=== PATIENT | male | born 1955 | race Caucasian/White ===

== ENCOUNTER → 2019-08-25 14:00 | Outpatient (CLI) | payer MEDICARE, OTHER, SELFPAY ==
--- NOTE | ~2019-08-25 | CT_ITS ---
EXAMINATION: CT chest w con DATE: 08/25/2019 14:41 INDICATION: Ascending aortic aneurysm TECHNIQUE: Transaxial computed tomographic images of the chest were obtained after the administration of 75 cc of Omnipaque 350 intravenous contrast. The dose-length product (DLP) was 498.08 mGy-cm. Ite rative reconstruction was used. COMPARISON: 08/14/2018 FINDINGS: There is a 4.8 cm fusiform aneurysm of the ascending aorta which is not significantly nails ed since the prior examination. There is no dissection. The lungs are free of acute opacities. No pat hologically enlarged thoracic lymph nodes are identified. The heart size is normal. There is no pleur al effusion or pneumothorax. A small sliding hiatal hernia is noted. IMPRESSION: 1. Stable fusiform aneurysm of the ascending aorta measuring 4.8 cm without dissection. Reviewed, dictated and finalized at location A. IMPRESSION: 1. Stable fusiform aneurysm of the ascending aorta measuring 4.8 cm without dis section.
[2019-08-25 14:25] LABS: Estimated Glomerular Filt Rate > 60
== END ==
DX: I71.2 Thoracic aortic aneurysm, without rupture (principal)
CPT/HCPCS: 36415; 71260; Q9967

== ENCOUNTER → 2020-08-30 09:28 | Outpatient (CLI) | payer MEDICARE, OTHER, SELFPAY ==
--- NOTE | ~2020-08-30 | CT_ITS ---
EXAMINATION: CT diagnostic chest w con EXAM DATE: 08/30/2020 10:02 INDICATION: Ascending aortic aneurysm, pulmonary nodule. TECHNIQUE: Spiral CT of the chest following intravenous injection of 75 mL Omnipaque 350. Axial, cor onal and sagittal images were reviewed. Coronal maximum intensity pixel images of chest reviewed. T collins dose-length product (DLP) for this examination was 457.30 mGy-cm. The exposure was tailored accor ding to patient size (auto mA exposure control), and iterative reconstruction (ASIR) was used as ashlyn tional dose reduction technique. Comparison is made to prior examination from 08/25/2019. FINDINGS: There is mild hyperinflation and emphysema. The ascending aorta measures 4.9 cm, unchanged . There is no dissection. No central pulmonary emboli. The lungs are clear. There is mild emphysema a nd hyperinflation. There is small sliding gastroesophageal hiatal hernia. There are no pleural or pe ricardial effusions. Tracheobronchial tree is patent. There is no mediastinal, hilar or axillary lymphadenopathy. There is no pneumothorax. Heart normal in size. Upper abdomen is unremarkable. Patient has diffuse idiopathic skeletal hyperostosis (DISH). There are no osteoblastic or osteolyt ic lesions identified. IMPRESSION: 1. Stable ascending aortic 4.9 cm aneurysm. 2. Mild emphysema and hyperinflation. Reviewed, dictated and finalized at location A.
[2020-08-30 09:49] LABS: Estimated Glomerular Filt Rate > 60
== END ==
PROVIDERS: PCP Internal Medicine
DX: I71.2 Thoracic aortic aneurysm, without rupture (principal); J43.9 Emphysema, unspecified
CPT/HCPCS: 71260; Q9967

== ENCOUNTER 2020-09-14 19:34 | Emergency (ER) | payer MEDICARE, OTHER, SELFPAY ==
--- NOTE | ~2020-09-14 | CT_ITS ---
EXAMINATION: CT abdomen pelvis w con INDICATION: Left lower quadrant pain TECHNIQUE: Computed tomographic images of the abdomen and pelvis were obtained after the administrati on of 100 cc of Omnipaque 350 intravenous contrast. The dose-length product (DLP) was 1052.54 mGy-cm. Automated exposure control and iterative reconstruction technique were employed. COMPARISON: 12/23/2012 FINDINGS: Minimal dependent atelectasis is present in the lung bases. The heart size is normal. The l iver is diffusely low in attenuation when compared with the spleen, consistent with hepatic steatosis . The spleen, pancreas, gallbladder, and adrenal glands are normal. There is a 2 cm cyst of the right kidney. A 2 mm nonobstructing stone is present in the left kidney. No pathologically enlarged abdomi nal or pelvic lymph nodes are identified. There is no free intraperitoneal gas or evidence of bowel o bstruction. There is a circumscribed area of fat attenuation adjacent to the distal descending colon with adjacent inflammatory change. There is moderate lumbar spondylosis. Colonic diverticulosis is pr esent without evidence of diverticulitis. IMPRESSION: 1. Findings adjacent to the distal descending colon suggestive of epiploic appendagitis. Reviewed, dictated and finalized at location A. IMPRESSION: 1. Findings adjacent to the distal descending colon suggestive of epiploic appe ndagitis.
[2020-09-14 19:40] VITALS: BP 169/88; PULSE 72; RESP 18; TEMP 36.1; O2SAT 98
--- NOTE | 2020-09-14 19:51 | ED.ABDPAIN ---
HPI - Abdominal Pain General Chief Complaint: Abdominal Pain Stated Complaint: ABD pain Time Seen by Provider: 09/14/20 19:44 Source: patient Mode of arrival: ambulatory Limitations: no limitations History of Present Illness HPI narrative: Patient is a 65-year-old male complaining of left lower quadrant pain that started approximately 3 days ago. Patient states his pain is a 5 out of 10, dull, nonradiating. Patient denies any chest pain, shortness of breath, nausea, vomiting, diarrhea, urinary symptoms, fever or chills. Related Data Allergies Allergy/AdvReac Type Severity Reaction Status Date / Time erythromycin base Allergy Unknown Verified 03/17/13 08:24 Sulfa (Sulfonamide Allergy Unknown Verified 03/17/13 08:24 Antibiotics) Review of Systems Review of Systems: All systems reviewed & are unremarkable except as noted in HPI and below Constitutional: Constitutional: Denies body ache(s), Denies chills, Denies excessive sweating, Denies fatigue, Denies fever(s), Denies headache(s), Denies lethargy, Denies malaise, Denies weakness and Denies weight loss Eyes: Eyes: Denies blurry vision, Denies change in vision and Denies loss of vision ENT: Denies dizziness, Denies ear discharge, Denies headache(s), Denies lip swelling, Denies epistaxis, Denies nasal congestion, Denies neck pain, Denies throat swelling and Denies tongue swelling Cardiovascular: Cardiovascular: Denies chest pain, Denies chest pain at rest, Denies chest pain with activity, Denies diaphoresis, Denies rapid heart rate, Denies edema, Denies irregular heart rhythm, Denies lightheadedness, Denies palpitations, Denies dyspnea and Denies dyspnea on exertion Respiratory: Respiratory: Denies chest congestion, Denies cough, Denies hemoptysis, Denies dyspnea and Denies dyspnea on exertion Gastrointestinal: Gastrointestinal: Denies melena, Denies hematochezia, Denies diarrhea, Denies nausea, Denies vomiting and Denies hematemesis Musculoskeletal: Musculoskeletal: Denies abnormal gait, Denies deformity, Denies joint swelling, Denies limited range of motion, Denies neck pain and Denies numbness Neurologic: Denies Abnormal speech present, Denies abnormal gait, Denies confusion, Denies dizziness, Denies headache(s), Denies focal weakness, Denies loss of vision, Denies numbness, Denies Other visual disturbances, Denies Sensory deficit (Neuro) and Denies weakness Psychiatric: Psychiatric: Denies confusion, Denies depression, Denies auditory hallucinations, Denies homicidal ideation and Denies suicidal ideation Endocrine: Endocrine: Denies cold intolerance, Denies excessive sweating, Denies fatigue, Denies heat intolerance and Denies palpitations Hematologic/Lymphatic: Hematologic/Lymphatic: Denies easy bleeding and Denies easy bruising Allergic/Immunologic: Allergic/Immunologic: Denies lip swelling, Denies throat swelling and Denies tongue swelling PMFSH Social History Social History Smoking status: Never smoker Alcohol intake: current Gender identity (if verbalized by the patient): Male Comments Past medical history: Hypertension, aortic aneurysm, hyperlipidemia Family history: Noncontributory Social history non-smoker no EtOH or drug use Exam Const: General: cooperative, healthy appearing, comfortable, no acute distress, well developed, alert and awake; No confusion Orientation/consciousness: oriented to person, oriented to place, oriented to time, patient oriented x3 and No confusion Limitations: no limitations HENMT: Head: normal to inspection, normocephalic and atraumatic Ears: hearing grossly normal bilaterally, TM normal on the right and TM normal on the left General nose exam: Normal external nose present, Normal nares present and No nasal discharge present Face and sinus: normal facial exam Mouth: Yes Normal oral and palatal mucosa present, Yes lip normal, Yes tongue normal and Yes oropharynx normal Throat: posterior oropharynx normal, tonsils normal and
[2020-09-14 20:06] LABS: Basophils Percent Auto 0.4 % (0.2-1.2); Eosinophils Absolute Auto 0.1 K/mm3 (0-0.3); Eosinophils Percent Auto 1.5 % (0-4.4); Hematocrit 43.8 % (42.0-52.0); Hemoglobin 14.7 g/dL (14.0-18.0); Immature Granulocyte Absolute 0.01 K/mm3 (0.00-0.031); Immature Granulocyte Percent A 0.1 % (0-0.5); Lymphocytes Absolute Auto 1.15 K/mm3 (0.9-3.2); Lymphocytes Percent Auto 16.7 % (18.3-44.2); Mean Corpuscular HGB Conc 33.6 g/dl (32-36); Mean Corpuscular Hemoglobin 29.9 pg (26-34); Mean Corpuscular Volume 89.2 fl (80-100); Mean Platelet Volume 10.3 fl (7.4-10.4); Monocytes Absolute Auto 0.9 K/mm3 (0.1-0.6); Monocytes Percent Auto 13.5 % (2.6-8.5); Neutrophils Absolute Auto 4.7 K/mm3 (1.3-6.7); Neutrophils Percent Auto 67.8 % (45.5-73.1); Platelet Count Result 221 k/mm3 (150-375); Red Blood Count 4.91 M/mm3 (4.6-6.20); Red Cell Distribution Width 12.1 % (11.5-14.5); White Blood Count 6.9 K/mm3 (4.5-10.0)
[2020-09-14 20:24] LABS: Alanine Aminotransferase 41 U/L (4-50); Albumin Level 4.2 g/dL (3.5-5.1); Alkaline Phosphatase 75 U/L (38-126); Anion Gap 6 mmol/L (8-16); Aspartate Amino Transferase 36 U/L (17-59); Bilirubin,Total 0.5 mg/dL (0.2-1.3); Blood Urea Nitrogen 18 mg/dL (9-20); Calcium 8.7 mg/dL (8.4-10.2); Carbon Dioxide 29 mmol/L (22-30); Chloride 105 mmol/L (98-107); Estimated CRCL calculation 80 ml/min; Estimated Glomerular Filt Rate > 60; Glucose 88 mg/dL (75-110); Lipase 121 U/L (23-300); Potassium 3.7 mmol/L (3.4-5.0); Sodium 140 mmol/L (137-145)
[2020-09-14 20:45] LABS: Add Urine Microscopic? YES; Appearance Urine Clear (Clear); Bilirubin Urine Negative (Negative); Blood Urine 1+ (Negative); Color Urine Yellow (Yellow); Glucose Urine UA Negative (Negative); Ketones Urine Negative (Negative); Leukocyte Esterase Ur Negative LEU/UL (Negative); Mucus Urine Few /lpf; Nitrate Urine Negative (Negative); Protein Urine 1+ mg/dL (Negative); Specific Grav Ur 1.029 (1.001-1.035); WBC Urine 0-3 /hpf
[2020-09-14] MEDS: SODIUM CHLORIDE 0.9% IV 1,000 ML 999 ML IV CONT (20:54)
[2020-09-14 22:17] VITALS: BP 167/90; PULSE 84; RESP 16; TEMP 36.2; O2SAT 99
== END 2020-09-14 22:18 | disposition home or self-care (01) ==
PROVIDERS: Emergency Provider Emergency Medicine; PCP Internal Medicine
DX: K63.89 Other specified diseases of intestine (principal)
CPT/HCPCS: 36415; 74177; 80053; 81001; 83690; 85025; 96360; 99284; J7030; Q9967

== ENCOUNTER → 2021-09-13 10:18 | Outpatient (CLI) | payer MEDICARE, SELFPAY ==
--- NOTE | ~2021-09-13 | CT_ITS ---
EXAMINATION: CT diagnostic chest w con EXAM DATE: 09/13/2021 10:56 INDICATION: Aortic aneurysm. TECHNIQUE: Spiral CT of the chest following intravenous injection of 75 mL Omnipaque 350. Axial, cor onal and sagittal images of the chest were reviewed. Coronal maximum intensity pixel images of chest reviewed. The dose-length product (DLP) for this examination was 503.81 mGy-cm. The exposure was t ailored according to patient size (auto mA exposure control), and iterative reconstruction (ASIR) was used as additional dose reduction technique. Comparison is made to prior examination from 08/30/2020. FINDINGS: The ascending aorta measures 4.8 x 4.8 cm, unchanged in size compared to prior study. Ther e is no dissection. No central pulmonary emboli. Mild emphysema and hyperinflation. There are no ple ural or pericardial effusions. Tracheobronchial tree is patent. There is no mediastinal, hilar or axillary lymphadenopathy. There is no pneumothorax. Heart normal in size. There is mild simental ry arterial calcification, arterial sclerosis. Hepatic steatosis. There is thoracic spondylosis wit hout osteoblastic or osteolytic lesions identified. IMPRESSION: 1. Ascending aortic 4.8 cm aneurysm, stable. 2. Mild emphysema and hyperinflation. Reviewed, dictated and finalized at location A.
[2021-09-13 10:44] LABS: Estimated Glomerular Filt Rate > 60
== END ==
PROVIDERS: PCP Internal Medicine; Visit Provider Internal Medicine
DX: I71.2 Thoracic aortic aneurysm, without rupture (principal); J43.9 Emphysema, unspecified; M47.814 Spondylosis without myelopathy or radiculopathy, thoracic region
CPT/HCPCS: 71260; Q9967

== ENCOUNTER → 2022-09-18 08:36 | Outpatient (CLI) | payer MEDICARE, SELFPAY ==
--- NOTE | ~2022-09-18 | CT_ITS ---
EXAMINATION:CT diagnostic chest w con DATE: 09/18/2022 09:08 INDICATION: Aneurysm of ascending aorta without rupture. TECHNIQUE: Computed tomography (CT) of the chest was performed with 75 mL Omnipaque 350 intravenous c ontrast. Automated exposure control and iterative reconstruction technique were employed. The dose-le ngth product (DLP) was 507.19 mGy-cm. COMPARISON: Chest CT 09/13/2021 FINDINGS: The lungs demonstrate minimal atelectasis. No pleural effusion. The heart size is normal. N o pericardial effusion. The aorta measures 3.3 cm at the sinuses of Valsalva, 3.4 cm at the sinotubul ar junction, 4.9 cm at the mid ascending aorta, 3.4 cm at the aortic isthmus, and 3.0 cm in the mid d escending aorta. There are bridging endplate osteophytes at multiple levels in the spine, consistent with diffuse idiopathic skeletal hyperostosis (DISH). IMPRESSION: 1. Ectasia of ascending aorta measuring 4.9 cm, not significantly changed from 4.8 cm on 09/13/2021. Reviewed, dictated and finalized at location A.
[2022-09-18 08:56] LABS: Estimated Glomerular Filt Rate > 60
== END ==
PROVIDERS: PCP Internal Medicine; Visit Provider Internal Medicine
DX: I71.21 Aneurysm of the ascending aorta, without rupture (principal)
CPT/HCPCS: 71260; Q9967

== ENCOUNTER 2022-10-16 00:50 | Day surgery (SDC) | payer MEDICARE, SELFPAY ==
[2022-10-09 10:04] VITALS: BMI 32.3
--- NOTE | 2022-10-15 19:20 | PM.HPGS ---
History of Present Illness History of Present Illness Consent: Risks, benefits, and alternatives have been discussed and questions answered. Patient agrees to proceed with procedure. Chief complaint: hx colon polyps Narrative: Fede Castillo is a 67 year old male referred for coloncancer screening. Review of Systems Review of Systems: All systems reviewed & are unremarkable except as noted in HPI and below PMFSH Social History Social History Smoking status: Never smoker Alcohol intake: current Alcohol use details: rarely Substance use: never Substance use type: does not use Living arrangements: with family Gender identity (if verbalized by the patient): Male Spiritual care concerns: No Meds Home Medications and Allergies Home Medications Medication Instructions Recorded Confirmed Type hydrochlorothiazide 12.5 mg tablet 12.5 mg PO DAILY 10/09/22 10/09/22 History levothyroxine 25 mcg tablet 25 mcg PO DAILY 10/09/22 10/09/22 History losartan 50 mg tablet 50 mg PO DAILY 10/09/22 10/09/22 History metoprolol tartrate 25 mg tablet 25 mg PO DAILY 10/09/22 10/09/22 History rosuvastatin 20 mg tablet 20 mg PO DAILY 10/09/22 10/09/22 History Allergies Allergy/AdvReac Type Severity Reaction Status Date / Time erythromycin base Allergy Unknown Other Verified 10/09/22 10:08 Sulfa (Sulfonamide Allergy Unknown Other Verified 10/09/22 10:08 Antibiotics) Exam Const: General: alert Orientation/consciousness: patient oriented x3 Resp: Auscultation: clear to auscultation bilaterally Cardio: Rhythm: regular rhythm GI: GI Palp: Yes Soft to palpation and No Tenderness to palpation present (GI) Neuro: General: patient oriented x3 Assessment and Plan Assessment and plan (1) Colon cancer screening: Code(s): Z12.11 - Encounter for screening for malignant neoplasm of colon Status: Acute Assessment and Plan: Colonoscopy with possible biopsy or polypectomy or cautery or injection of substances.
[2022-10-16 07:35] VITALS: BP 127/98; PULSE 86; RESP 20; TEMP 35.9; O2SAT 97
[2022-10-16] MEDS: LACTATED RINGERS 1,000 ML 150 ML IV CONT (07:49)
--- NOTE | 2022-10-16 08:16 | P.PNAN_ITS ---
Anes - Initial Pre Proc Eval Procedure: Operation Date: 10/16/22 08:30 Proposed Procedures p Colonoscopy - Felice Ramachandran MD Date/Time: 10/16/22 08:16 Surgeon: Felice Ramachandran MD Pre Op Diagnosis: hx colon polyps Patient Data Age: 67 Gender: M Height: 1.8 m Weight: 103.8 kg Last Vital Signs Temp 96.7 F L 10/16/22 07:35 Pulse 86 10/16/22 07:35 Resp 20 10/16/22 07:35 BP 127/98 H 10/16/22 07:35 Pulse Ox 97 10/16/22 07:35 O2 Del Method Room Air 10/16/22 07:35 Allergies Allergy/AdvReac Type Severity Reaction Status Date / Time erythromycin base Allergy Unknown Other Verified 10/09/22 10:08 Sulfa (Sulfonamide Allergy Unknown Other Verified 10/09/22 10:08 Antibiotics) Home Medications Medication Instructions Recorded Confirmed Type hydrochlorothiazide 12.5 mg tablet 12.5 mg PO DAILY 10/09/22 10/09/22 History levothyroxine 25 mcg tablet 25 mcg PO DAILY 10/09/22 10/09/22 History losartan 50 mg tablet 50 mg PO DAILY 10/09/22 10/09/22 History metoprolol tartrate 25 mg tablet 25 mg PO DAILY 10/09/22 10/09/22 History rosuvastatin 20 mg tablet 20 mg PO DAILY 10/09/22 10/09/22 History Patient hx anesthesia problems: none Family hx anesthesia problems: none Results Review: All pre-operative results and documents have been reviewed as part of the pre- operative evaluation. [facility] Social History Social History Smoking status: Never smoker Alcohol intake: current Alcohol use details: rarely Substance use: never Substance use type: does not use Living arrangements: with family Gender identity (if verbalized by the patient): Male Spiritual care concerns: No Anes - Eval Final PreProcedure Day of Procedure 10/16/22 08:16 Patient weight: obese Heart: regular rate and rhythm Lungs: clear to auscultation Airway: Mallampati scale class II Neurological: alert and oriented Last oral intake: >/= 8 hours ASA classification: III Emergent: no Anesthetic plan: proceed Anesthesia type and monitoring: general GIVS and standard monitoring Results Review: All pre-operative results and documents have been reviewed as part of the pre- operative evaluation. Informed Consent: The patient's anesthetic plan and its attendant risks and benefits were discussed with the patient/family/POA. Questions were solicited and answers provided to the satisfaction of the patient/family/POA.
[2022-10-16 08:39] VITALS: BP 120/86; PULSE 64; RESP 20; O2SAT 95
[2022-10-16 08:49] VITALS: BP 118/87; PULSE 75; RESP 16; O2SAT 97
[2022-10-16 08:59] VITALS: BP 124/86; PULSE 64; RESP 20; O2SAT 97
== END 2022-10-16 09:15 | disposition home or self-care (01) ==
PROVIDERS: PCP Internal Medicine; Visit Provider Internal Medicine Gastroenterology
PROC: 0DJD8ZZ Inspection of Lower Intestinal Tract, Via Natural or Artificial Opening Endoscopic (ICD-10-PCS; CPT 45378; principal; 2022-10-16 08:30)
DX: Z12.11 Encounter for screening for malignant neoplasm of colon (principal); K64.8 Other hemorrhoids; K57.30 Diverticulosis of large intestine without perforation or abscess without bleeding; Z86.010 Personal history of colon polyps; E66.9 Obesity, unspecified; Z68.31 Body mass index [BMI] 31.0-31.9, adult
CPT/HCPCS: G0105; J2704; J7120

== ENCOUNTER → 2023-04-18 16:21 | Outpatient (CLI) | payer MEDICARE, SELFPAY ==
--- NOTE | ~2023-04-18 | XR_ITS ---
EXAMINATION: XR chest 2V DATE: 04/18/2023 16:40 INDICATION: Cough. TECHNIQUE: Frontal and lateral views of the chest were obtained. COMPARISON: Chest CT 09/18/2022 FINDINGS: There is mild atelectasis at left lung base. No pleural effusion or pneumothorax. The heart size is normal. IMPRESSION: 1. Mild atelectasis at left lung base. Reviewed, dictated and finalized at location E. [employer]
== END ==
PROVIDERS: PCP Internal Medicine; Visit Provider Internal Medicine
DX: J98.11 Atelectasis (principal); R05.9 Cough, unspecified
CPT/HCPCS: 71046

== ENCOUNTER 2024-03-29 10:36 | Outpatient (CLI) | payer MEDICARE, SELFPAY ==
--- NOTE | ~2024-03-29 | XR_ITS ---
EXAMINATION: XR chest 2V 03/29/2024 10:50 INDICATION: Cough PROCEDURE: 2 view chest COMPARISON: 04/18/2023 FINDINGS: The lungs are clear. The cardiomediastinal silhouette is within normal limits. There are no pleural effusions. There is no pneumothorax suspected. IMPRESSION: 1: NO ACUTE CARDIOPULMONARY DISEASE. Reviewed, dictated and finalized at location B.
== END 2024-03-29 10:37 | disposition home or self-care (01) ==
PROVIDERS: PCP Internal Medicine
DX: R05.9 Cough, unspecified (principal)
CPT/HCPCS: 71046

== ENCOUNTER 2024-10-30 16:02 | Outpatient (CLI) | payer MEDICARE, SELFPAY ==
--- NOTE | ~2024-10-30 | CT_ITS ---
Clinical Indication: Aneurysm of ascending aorta CT Scan of the Chest with Contrast: Technique: Contiguous sections were acquired throughout the chest after intravenous administration of 75 cc of Omnipaque 350. Dose reduction technique was used on this scan by utilizing automated exposu re control and iterative reconstruction technique. The dose-length product (DLP) was 514.15 mGy-cm. COMPARISON: 09/18/2022 Findings: There is no evidence of any significant mediastinal, hilar or axillary lymphadenopathy. There is no f illing defect in the pulmonary arterial tree to suggest pulmonary embolus. Ascending aorta measures 5 cm in diameter. No aortic dissection seen. There is no evidence of pleural or pericardial effusion. The lungs are clear. No pulmonary nodules or infiltrates are noted. Images through the upper abdomen reveal no abnormalities. There is extensive DISH of the thoracic spi ne. Impression: 5.0 cm ascending aortic aneurysm. Clear lungs. Reviewed, dictated and finalized at [facility]. Impression: 5.0 cm ascending aortic aneurysm. Clear lungs.
[2024-10-30 16:19] LABS: Estimated Glomerular Filt Rate 60
== END 2024-10-30 16:03 | disposition home or self-care (01) ==
PROVIDERS: PCP Internal Medicine; Visit Provider Internal Medicine Cardiovascular Disease
DX: I71.21 Aneurysm of the ascending aorta, without rupture (principal)
CPT/HCPCS: 71260; Q9967